=== PATIENT | female | born 1975 | race Caucasian/White ===

== ENCOUNTER 2016-12-22 16:25 | Emergency (ER) | payer BC ==
--- NOTE | 2016-12-22 17:00 | ERPHSYRPT ---
- History of Present Illness Time Seen by Provider: 12/22/16 16:53 Historian: patient Exam Limitations: no limitations Patient Subjective Stated Complaint: pt states she began having right lower abdominal pain for the past 1 week. states pain is worse over the past few days. denies any diarrhea or vomiting. Triage Nursing Assessment: pt pink, warm, dry. abdomen soft, nontender. bowel sounds present in all 4 quads. pt afebrile. Physician History: Patient is a 41-year-old female with her complaining of intermittent abdominal pain on the right side for 2 years. The pain has become more consistent over the past week. No the past few days it is become worse. She vomited at the beginning of the week but hasn't vomited since. She is nauseated. She denies diarrhea. She denies fever or chills. She had surgery for intestinal adhesions 10 years ago. She states the pain now is the same as it was 10 years ago. Her past surgical history is significant for appendectomy , cholecystectomy, total hysterectomy, and adhesions. Her medical history is significant for depression, fibromyalgia, and COPD. Timing/Duration: other (2 years) Activities at Onset: none Quality: sharpness Abdominal Pain Onset Location: RUQ, RLQ Pain Radiation: no radiation Severity of Pain-Max: severe Severity of Pain-Current: severe Modifying Factors: Improves With: analgesics Associated Symptoms: nausea, vomiting, No diarrhea Previous symptoms: same symptoms as today Allergies/Adverse Reactions: No Known Drug Allergies Allergy (Verified 12/22/16 16:41) Home Medications: Hydrocodone/APAP 10/325 mg [Jarrell 10/325 MG Tablet] 1 tab PO Q4-6HPRN PRN 02/24/16 [History] Meloxicam [Mobic] 15 mg PO DAILY 12/22/16 [History] Paroxetine HCl ER 12.5 mg [Paxil 12.5MG CR] 12.5 mg PO DAILY 12/22/16 [ History] Hx Tetanus, Diphtheria Vaccination/Date Given: Yes (up to date) Hx Influenza Vaccination/Date Given: No Hx Pneumococcal Vaccination/Date Given: No Immunizations Up to Date: Yes - Review of Systems Constitutional: No Fever, No Chills Eyes: No Symptoms Ears, Nose, & Throat: No Symptoms Respiratory: No Cough, No Dyspnea Cardiac: No Chest Pain, No Edema, No Syncope Abdominal/Gastrointestinal: Nausea, Vomiting, No Diarrhea Genitourinary Symptoms: No Dysuria Musculoskeletal: No Back Pain, No Neck Pain Skin: No Rash Neurological: No Dizziness, No Focal Weakness, No Sensory Changes Psychological: No Symptoms Endocrine: No Symptoms Hematologic/Lymphatic: No Symptoms Immunological/Allergic: No Symptoms All Other Systems: Reviewed and Negative - Past Medical History Pertinent Past Medical History: Yes Neurological History: No Pertinent History ENT History: No Pertinent History Cardiac History: No Pertinent History Respiratory History: No Pertinent History Endocrine Medical History: No Pertinent History Musculoskeletal History: Arthritis, Fibromyalgia GI Medical History: No Pertinent History History: No Pertinent History Psycho-Social History: No Pertinent History Female Reproductive Disorders: Cervical Cancer - Past Surgical History Past Surgical History: Yes Neuro Surgical History: No Pertinent History Cardiac: No Pertinent History Respiratory: No Pertinent History Gastrointestinal: Appendectomy, Cholecystectomy Genitourinary: No Pertinent History Musculoskeletal: No Pertinent History Female Surgical History: Hysterectomy, Other Other Surgical History: several exploratory lap--removed cysts and endometro. cervical ca--cone. tonsils - Social History Smoking Status: Current every day smoker How long have you smoked: 20 Exposure to second hand smoke: Yes Drug Use: none Patient Lives Alone: No Significant Family History: no pertinent family hx (no early heart disease or blood clots) - Female History Hx Last Menstrual Period: hyster - Nursing Vital Signs Nursing Vital Signs: Initial Vital Signs Temperature 98.3 F 12/22/16 16:35 Pulse Rate 89 12/22/16 16:35 Respiratory Rate 20 12/22/16 16:35 Blood Pressure 143/49 12/22/16 16:35 O2 Sat by Pulse Oximetry 98 12/22/16 16:35 Pain Scale Pain Intensity 5 - Physical Exam General Appearance: moderate distress Eye Exam: PERRL/EOMI, eyes nml inspection Ears, Nose, Throat Exam: normal ENT inspection, pharynx normal, moist mucous membranes Neck Exam: normal inspection, non-tender, supple, full range of motion Respiratory Exam: normal breath sounds, lungs clear, No respiratory distress Cardiovascular Exam: regular rate/rhythm, normal heart sounds Gastrointestinal/Abdomen Exam: normal bowel sounds, tenderness (right side) Pelvic Exam: not done Rectal Exam: not done Back Exam: normal inspection, normal range of motion, No CVA tenderness, No vertebral tenderness Extremity Exam: normal inspection, normal range of motion, pelvis stable Neurologic Exam: alert, oriented x 3, cooperative, normal mood/affect, nml cerebellar function, sensation nml, No motor deficits Skin Exam: normal color, warm, dry SpO2 Interpretation: normal SpO2: 98 Oxygen Delivery: Room Air - CT Exams Abdomen/Pelvis CT Interpretation: Other (Moderate diffuse fecal stasis without obstruction. Mild descending duodenal and ileal bowel wall thickening, possible enteritis. Nonobstructing punctate left renal stone. Remaining abdomen and pelvis negative. Per Dr. Schneider.) Ordered Tests: Active Orders 24 hr Category Date Time Status IV Insertion STAT Care 12/22/16 16:43 Active ABDOMEN AND PELVIS W/0 CONTRAS [CT] Stat Exams 12/22/16 17:04 Taken CBC W DIFF Stat Lab 12/22/16 16:45 Completed CMP Stat Lab 12/22/16 16:45 Completed CULTURE,URINE Stat Lab 12/22/16 16:45 Received LIPASE Stat Lab 12/22/16 16:45 Completed Lactic Acid Stat Lab 12/22/16 17:04 Completed UA W/ MICROSCOPIC Stat Lab 12/22/16 16:45 Completed Urine Triage Profile Stat Lab 12/22/16 16:45 Completed Medication Summary Generic Name Dose Route Start Last Admin Trade Name Freq PRN Reason Stop Dose Admin Sodium Chloride 1,000 mls @ 999 mls/hr 12/22/16 17:04 12/22/16 17:11 Sodium Chloride 0.9% 1000 Ml IV 12/22/16 18:04 999 mls/hr .Q1H1M STA Administration Discontinued Medications Generic Name Dose Route Start Last Admin Trade Name Freq PRN Reason Stop Dose Admin Sodium Chloride Confirm 12/22/16 17:10 Sodium Chloride 0.9% 1000 Ml Administered 12/22/16 17:11 Dose 1,000 mls @ ud .ROUTE .STK-MED ONE Ketorolac Tromethamine 30 mg 12/22/16 17:04 12/22/16 17:11 Toradol 30 Mg Injection IV 12/22/16 17:05 30 mg STAT ONE Administration Ketorolac Tromethamine Confirm 12/22/16 17:10 Toradol 30 Mg Injection Administered 12/22/16 17:11 Dose 30 mg .ROUTE .STK-MED ONE Morphine Sulfate 4 mg 12/22/16 17:04 12/22/16 17:11 Morphine Sulfate 4 Mg Inj IV 12/22/16 17:05 4 mg STAT ONE Administration Morphine Sulfate Confirm 12/22/16 17:10 Morphine Sulfate 4 Mg Inj Administered 12/22/16 17:11 Dose 4 mg .ROUTE .STK-MED ONE Promethazine HCl 25 mg 12/22/16 17:04 12/22/16 17:11 Phenergan 25 Mg Inj IV 12/22/16 17:05 25 mg STAT ONE Administration Promethazine HCl Confirm 12/22/16 17:10 Phenergan 25 Mg Inj Administered 12/22/16 17:11 Dose 25 mg .ROUTE .STK-MED ONE Lab/Rad Data: Laboratory Result Diagrams 12/22/16 16:45 12/22/16 16:45 Laboratory Results 12/22/16 12/22/16 12/22/16 Range/Units 17:04 16:45 16:45 WBC 9.6 (4.0-10.5) K/mm3 RBC 4.70 (4.1-5.4) M/mm3 Hgb 14.5 (12.0-16.0) gm/dl Hct 43.3 (35-47) % MCV 92.1 (78-100) fl MCH 30.9 (26-32) pg MCHC 33.5 (32-36) g/dl RDW 12.9 (11.5-14.0) % Plt Count 332 (150-450) K/mm3 MPV 10.5 H (6-9.5) fl Gran % 67.0 H (36.0-66.0) % Lymphocytes % 25.1 (24.0-44.0) % Monocytes % 6.7 (0.0-12.0) % Eosinophils % 0.9 (0.00-5.0) % Basophils % 0.3 (0.0-0.4) % Basophils # 0.03 (0-0.4) Sodium 142 (136-145) mEq/L Potassium 4.3 (3.5-5.1) mEq/L Chloride 103 (98-107) mEq/L Carbon Dioxide 30.3 (21-32) mEq/L Anion Gap 12.8 (5-15) MEQ/L BUN 17 (9-20) mg/dL Creatinine 0.78 (0.55-1.30) mg/dl Estimated GFR > 60 ML/MIN Glucose 92 (70-110) MG/DL Lactic Acid 1.4 (0.4-2.0) Calcium 9.8 (8.5-10.1) mg/dL Total Bilirubin 0.20 (0.2-1.0) mg/dL AST 23 (15-37) U/L ALT 16 (12-78) U/L Alkaline Phosphatase 124 H (46-116) U/L Serum Total Protein 8.5 H (6.4-8.2) gm/dL Albumin 4.3 (3.4-5.0) g/dL Lipase 455 H (73-393) U/L Ur Collection Type Urine Color (YELLOW) Urine Appearance (CLEAR) Urine pH (5-6) Ur Specific Fisher (1.005-1.025) Urine Protein (Negative) Urine Ketones (NEGATIVE) Urine Blood (0-5) Hai/ul Urine Nitrite (NEGATIVE) Urine Bilirubin (NEGATIVE) Urine Urobilinogen (0-1) mg/dL Ur Leukocyte Esterase (NEGATIVE) Urine Microscopic RBC (0-2) /HPF Urine Microscopic WBC (0-5) /HPF Ur Epithelial Cells (FEW) /HPF Urine Bacteria (NEGATIVE) /HPF Urine Glucose (NEGATIVE) mg/dL Urine Opiates Level (NEGATIVE) Ur Methadone (NEGATIVE) Urine Barbiturates (NEGATIVE) Ur Phencyclidine (PCP) (NEGATIVE) Urine Amphetamine (NEGATIVE) U Benzodiazepine Level (NEGATIVE) Urine Cocaine (NEGATIVE) Urine Marijuana (THC) (NEGATIVE) Specimen Received 12/22/16 12/22/16 Range/Units 16:45 16:45 WBC (4.0-10.5) K/mm3 RBC (4.1-5.4) M/mm3 Hgb (12.0-16.0) gm/dl Hct (35-47) % MCV (78-100) fl MCH (26-32) pg MCHC (32-36) g/dl RDW (11.5-14.0) % Plt Count (150-450) K/mm3 MPV (6-9.5) fl Gran % (36.0-66.0) % Lymphocytes % (24.0-44.0) % Monocytes % (0.0-12.0) % Eosinophils % (0.00-5.0) % Basophils % (0.0-0.4) % Basophils # (0-0.4) Sodium (136-145) mEq/L Potassium (3.5-5.1) mEq/L Chloride (98-107) mEq/L Carbon Dioxide (21-32) mEq/L Anion Gap (5-15) MEQ/L BUN (9-20) mg/dL Creatinine (0.55-1.30) mg/dl Estimated GFR ML/MIN Glucose (70-110) MG/DL Lactic Acid (0.4-2.0) Calcium (8.5-10.1) mg/dL Total Bilirubin (0.2-1.0) mg/dL AST (15-37) U/L ALT (12-78) U/L Alkaline Phosphatase (46-116) U/L Serum Total Protein (6.4-8.2) gm/dL Albumin (3.4-5.0) g/dL Lipase (73-393) U/L Ur Collection Type VOID Urine Color YELLOW (YELLOW) Urine Appearance CLEAR (CLEAR) Urine pH 7.0 (5-6) Ur Specific Fisher 1.015 (1.005-1.025) Urine Protein NEGATIVE (Negative) Urine Ketones NEGATIVE (NEGATIVE) Urine Blood NEGATIVE (0-5) Hai/ul Urine Nitrite NEGATIVE (NEGATIVE) Urine Bilirubin NEGATIVE (NEGATIVE) Urine Urobilinogen NORMAL (0-1) mg/dL Ur Leukocyte Esterase TRACE (NEGATIVE) Urine Microscopic RBC 0-2 (0-2) /HPF Urine Microscopic WBC 5-10 (0-5) /HPF Ur Epithelial Cells MODERATE (FEW) /HPF Urine Bacteria MODERATE (NEGATIVE) /HPF Urine Glucose NEGATIVE (NEGATIVE) mg/dL Urine Opiates Level NEG. (NEGATIVE) Ur Methadone NEG. (NEGATIVE) Urine Barbiturates NEG. (NEGATIVE) Ur Phencyclidine (PCP) NEG. (NEGATIVE) Urine Amphetamine NEG. (NEGATIVE) U Benzodiazepine Level NEG. (NEGATIVE) Urine Cocaine NEG. (NEGATIVE) Urine Marijuana (THC) NEG. (NEGATIVE) Specimen Received 12/22/16 1650 - Progress Progress: improved Counseled pt/family regarding: lab results, diagnosis, need for follow-up, rad results - Departure Time of Disposition: 18:06 Departure Disposition: Home Clinical Impression: Abdominal pain, Serum lipase elevation Condition: Stable Critical Care Time: No Referrals: BOURGASSER,GENE A [NON-STAFF PHY W/O PRIVILEGES] - Additional Instructions: You have abdominal pain. The abdominal CT scan shows possible enteritis of the small intestine and fecal stasis without obstruction. You also have mildly elevated serum lipase. You were given fluids, Toradol 30 mg, and morphine 8 mg by IV in the ER. You were given the opportunity to stay in the hospital for pain control and observation that you declined. Start with a clear liquid diet. Continue to take her home medicines, including the hydrocodone. If the condition worsens, do not hesitate to return for call your family doctor.
[2016-12-22] MEDS ORDERED: MORPHINE SULFATE 4 MG INJ IV ONE ×2 (17:04→18:14)
[2016-12-22] MEDS ORDERED: TORAdol 30 mg Injection IV ONE (17:04)
[2016-12-22] MEDS ORDERED: Sodium Chloride 0.9% 1000 ML 1,000 ML IV STA (17:04)
[2016-12-22] MEDS ORDERED: Phenergan 25 MG INJ IV ONE (17:04)
[2016-12-22] MEDS ORDERED: TORAdol 30 mg Injection ONE (17:10)
[2016-12-22] MEDS ORDERED: Phenergan 25 MG INJ ONE (17:10)
[2016-12-22] MEDS ORDERED: MORPHINE SULFATE 4 MG INJ ONE ×2 (17:10→18:18)
[2016-12-22] MEDS ORDERED: Sodium Chloride 0.9% 1000 ML 1,000 ML ONE (17:10)
[2016-12-22 17:13] LABS: BASOPHIL % 0.3 % (0.0-0.4); Eosinophil % 0.9 % (0.00-5.0); Lymphocytes % 25.1 % (24.0-44.0); Mean Cell Volume 92.1 fl (78-100); Mean Corpuscular Hemoglobin 30.9 pg (26-32); Mean Platelet Volume 10.5 fl (6-9.5); Monocytes % 6.7 % (0.0-12.0); Platelet Count 332 K/mm3 (150-450); Red Cell Distribution Width 12.9 % (11.5-14.0); White Blood Count 9.6 K/mm3 (4.0-10.5)
[2016-12-22 17:26] LABS: ADD URINE CULTURE? YES (NO); Bacteria MODERATE /HPF (NEGATIVE); Bilirubin NEGATIVE (NEGATIVE); Blood NEGATIVE Ery/ul (0-5); COMPLETE URINE MICROSCOPIC? YES; Collection Type VOID; Epithelial Cells MODERATE /HPF (FEW); Glucose NEGATIVE (NEGATIVE); Leukocyte Esterase TRACE (NEGATIVE)
[2016-12-22 17:31] LABS: ALBUMIN 4.3 g/dL (3.4-5.0); ALKALINE PHOSPHATASE 124 U/L (46-116); ANION GAP 12.8 MEQ/L (5-15); BLOOD UREA NITROGEN 17 mg/dL (9-20); CHLORIDE 103 mEq/L (98-107); Carbon Dioxide 30.3 mEq/L (21-32); Glucose 92 MG/DL (70-110); LIPASE 455 U/L (73-393); Potassium 4.3 mEq/L (3.5-5.1); SGOT/AST 23 U/L (15-37); SGPT/ALT 16 U/L (12-78); SODIUM 142 mEq/L (136-145); Total Protein 8.5 gm/dL (6.4-8.2)
[2016-12-22 18:49] VITALS: BP 119/70; PULSE 69; O2SAT 99
--- NOTE | 2016-12-22 22:14 | XRAY ---
Indication: Right lower quadrant pain for one week. Multiple contiguous axial images obtained through the abdomen and pelvis without contrast as ordered. Comparison: None Lung bases are clear. Heart is not enlarged. Noncontrasted stomach and bowel loops appear nonobstructed. Descending duodenum and jejunal bowel loops demonstrates mild wall thickening with some fluid leveling favoring enteritis. No free fluid/air. Moderate diffuse scattered colonic fecal debris. Previous reported appendectomy, cholecystectomy, and hysterectomy. Punctate nonobstructing left renal calculus and 1.5 cm left upper renal cyst. Remaining liver, pancreas, spleen, adrenal glands, kidneys, ureters, and bladder appear unremarkable for noncontrast exam. Mild aortoiliac calcifications without AAA. Osseous structures intact. Impression: 1. Duodenal and jejunal bowel wall thickening with fluid leveling favoring enteritis. 2. Fecal stasis without obstruction. 3. Incidental nonobstructing left renal microcalculus and left renal cyst. CTDI 8.95
== END 2016-12-22 18:48 | disposition home or self-care (01) ==
LOC: ED 16:25
DX: R10.31 Right lower quadrant pain (principal); R10.11 Right upper quadrant pain; R74.8 Abnormal levels of other serum enzymes; R11.2 Nausea with vomiting, unspecified
CPT/HCPCS: 36000; 36415; 74176; 80053; 80307; 81000; 83605; 83690; 85025; 87086; 96360; 96361; 96374; 96375; 99284; J1885; J2270; J2550

== ENCOUNTER 2018-01-11 05:35 | Emergency (ER) | payer BC ==
--- NOTE | 2018-01-11 05:53 | ERPHSYRPT ---
- History of Present Illness Source: patient Exam Limitations: no limitations Timing/Duration: yesterday Activities at Onset: none Severity of Dyspnea-Max: moderate Severity of Dyspnea-Current: moderate Possible Cause: no prior episodes Modifying Factors: Improves With: coughing, deep breath Associated Symptoms: constant, chest pain/discomfort, painful breathing, No insomnia, No loss of appetite, No lightheadedness, No wheezing, No productive cough Hx Tetanus, Diphtheria Vaccination/Date Given: Yes (up to date) Hx Influenza Vaccination/Date Given: No Hx Pneumococcal Vaccination/Date Given: No <GEOFF ELIAS - Last Filed: 01/11/18 05:47> <FRANCISCO MATOS - Last Filed: 01/11/18 07:46> - History of Present Illness Time Seen by Provider: 01/11/18 05:45 Physician History: 42 y/o white female presents with sharp substernal cp when coughing and taking a deep breath. pain does not radiate. started last pm and is worsening. pt has a h/o pleurisy but this is worse. pt is a smoker. pt denies fever and denies productive cough. (GEOFF ELIAS) Allergies/Adverse Reactions: No Known Drug Allergies Allergy (Verified 12/22/16 16:41) Home Medications: Hydrocodone/APAP 10/325 mg [Rumson 10/325 MG Tablet] 1 tab PO Q4-6HPRN PRN 02/24/16 [History] Meloxicam [Mobic] 15 mg PO DAILY 12/22/16 [History] Paroxetine HCl ER 12.5 mg [Paxil 12.5MG CR] 12.5 mg PO DAILY 12/22/16 [ History] - Review of Systems Constitutional: No Symptoms, No Fever Eyes: No Symptoms Ears, Nose, & Throat: No Symptoms, No Ear Pain Respiratory: Cough, Dyspnea (mild), No Stridor, No Wheezing Cardiac: Chest Pain Abdominal/Gastrointestinal: No Symptoms, No Abdominal Pain, No Nausea, No Vomiting, No Diarrhea Genitourinary Symptoms: No Symptoms, No Dysuria, No Frequency, No Hematuria Musculoskeletal: No Symptoms, No Back Pain, No Neck Pain, No Injury Skin: No Symptoms Neurological: No Symptoms, Headache, No Dizziness Psychological: No Symptoms Endocrine: No Symptoms Hematologic/Lymphatic: No Symptoms Immunological/Allergic: No Symptoms All Other Systems: Reviewed and Negative <GEOFF ELIAS - Last Filed: 01/11/18 05:47> - Past Medical History Pertinent Past Medical History: Yes Neurological History: No Pertinent History ENT History: No Pertinent History Cardiac History: No Pertinent History Respiratory History: No Pertinent History Endocrine Medical History: No Pertinent History Musculoskeletal History: Arthritis, Fibromyalgia GI Medical History: No Pertinent History History: No Pertinent History Psycho-Social History: No Pertinent History Female Reproductive Disorders: Cervical Cancer - Past Surgical History Past Surgical History: Yes Neuro Surgical History: No Pertinent History Cardiac: No Pertinent History Respiratory: No Pertinent History Gastrointestinal: Appendectomy, Cholecystectomy Genitourinary: No Pertinent History Musculoskeletal: No Pertinent History Female Surgical History: Hysterectomy, Other Other Surgical History: several exploratory lap--removed cysts and endometro. cervical ca--cone. tonsils - Social History Smoking Status: Current every day smoker How long have you smoked: 20 Exposure to second hand smoke: Yes Drug Use: none Patient Lives Alone: No Significant Family History: no pertinent family hx (no early heart disease or blood clots) <GEOFF ELIAS - Last Filed: 01/11/18 05:47> - Physical Exam General Appearance: mild distress, alert, anxiety Eye Exam: PERRL/EOMI, eyes nml inspection Ears, Nose, Throat Exam: hearing grossly normal Neck Exam: normal inspection, non-tender, supple, full range of motion Respiratory Exam: normal breath sounds, chest tenderness, lungs clear, airway intact, No respiratory distress, No rhonchi, No wheezing, No stridor Cardiovascular/Chest Exam: normal heart sounds, regular rate/rhythm, normal peripheral pulses, No bradycardia, No tachycardia Abdominal/Gastrointestinal Exam: soft, normal bowel sounds, No tenderness, No guarding, No rebound Rectal Exam: not done Extremity Exam: non-tender, normal range of motion, normal inspection Neurologic Exam: alert, oriented x 3, cooperative, telecom billing analyst II-XII nml as tested, normal mood/affect Skin Exam: normal color, warm, dry Lymphatic Exam: No adenopathy SpO2 Interpretation: normal Oxygen Delivery: Room Air <GEOFF ELIAS - Last Filed: 01/11/18 05:47> - Nursing Vital Signs Nursing Vital Signs: Initial Vital Signs Temperature 98.1 F 01/11/18 05:36 Pulse Rate 86 01/11/18 05:36 Respiratory Rate 18 01/11/18 05:36 Blood Pressure 135/85 01/11/18 05:36 O2 Sat by Pulse Oximetry 99 01/11/18 05:36 Pain Scale Pain Intensity 8 - Course Nursing assessment & vital signs reviewed: Yes EKG Interpreted by Me: RATE (79), Sinus Rhythm, NORMAL AXIS, NORMAL INTERVALS, NORMAL QRS, Right Bundle Branch Block, Other (no change from ekg dated 02/24/16) <GEOFF ELIAS - Last Filed: 01/11/18 05:47> - Radiology Exams Chest X-ray Interpretation: Interpreted by me, Negative (comp to 2V chest 02/24/16.) <FRANCISCO MATOS - Last Filed: 01/11/18 07:46> Ordered Tests: Active Orders 24 hr Category Date Time Status CHEST 1 VIEW (PORTABLE) Stat Exams 01/11/18 05:56 Taken CBC W DIFF Stat Lab 01/11/18 06:10 Completed CMP Stat Lab 01/11/18 06:10 Completed D-DIMER QUANTITATION Stat Lab 01/11/18 06:10 Completed TROPONIN Q3H Lab 01/11/18 06:10 Completed TROPONIN Q3H Lab 01/11/18 09:00 Ordered TROPONIN Q3H Lab 01/11/18 12:00 Ordered TROPONIN Q3H Lab 01/11/18 15:00 Ordered TROPONIN Q3H Lab 01/11/18 18:00 Ordered Medication Summary Discontinued Medications Generic Name Dose Route Start Last Admin Trade Name Tristianq PRN Reason Stop Dose Admin Aspirin 324 mg 01/11/18 05:56 01/11/18 06:26 Baby Aspirin 81 Mg Chew PO 01/11/18 05:57 324 mg STAT ONE Administration Aspirin Confirm 01/11/18 06:15 Baby Aspirin 81 Mg Chew Administered 01/11/18 06:16 Dose 324 mg .ROUTE .STK-MED ONE Morphine Sulfate 2 mg 01/11/18 05:56 01/11/18 06:26 Morphine Sulfate 2 Mg Inj IV 01/11/18 05:57 2 mg STAT ONE Administration Morphine Sulfate Confirm 01/11/18 06:15 Morphine Sulfate 2 Mg Inj Administered 01/11/18 06:16 Dose 2 mg .ROUTE .STK-MED ONE Ondansetron HCl 4 mg 01/11/18 05:56 01/11/18 06:26 Zofran 4 Mg/2 Ml Vial IV 01/11/18 05:57 4 mg STAT ONE Administration Ondansetron HCl Confirm 01/11/18 06:15 Zofran 4 Mg/2 Ml Vial Administered 01/11/18 06:16 Dose 4 mg .ROUTE .[facility] ONE Lab/Rad Data: Laboratory Result Diagrams 01/11/18 06:10 01/11/18 06:10 Laboratory Results 01/11/18 01/11/18 01/11/18 Range/Units 06:10 06:10 06:10 WBC (4.0-10.5) K/mm3 RBC (4.1-5.4) M/mm3 Hgb (12.0-16.0) gm/dl Hct (35-47) % MCV (78-100) fl MCH (26-32) pg MCHC (32-36) g/dl RDW (11.5-14.0) % Plt Count (150-450) K/mm3 MPV (6-9.5) fl Gran % (36.0-66.0) % Eos # (Auto) (0-0.5) Absolute Lymphs (auto) (1.0-4.6) Absolute Monos (auto) (0.0-1.3) Lymphocytes % (24.0-44.0) % Monocytes % (0.0-12.0) % Eosinophils % (0.00-5.0) % Basophils % (0.0-0.4) % Absolute Granulocytes (1.4-6.9) Basophils # (0-0.4) D-Dimer < 215 L (215-500) ng/mL Sodium 144 (137-145) mmol/L Potassium 3.9 (3.5-5.1) mmol/L Chloride 103 (98-107) mmol/L Carbon Dioxide 29 (22-30) mmol/L Anion Gap 16.0 H (5-15) MEQ/L BUN 15 (7-17) mg/dL Creatinine 0.75 (0.52-1.04) mg/dL Estimated GFR > 60.0 ML/MIN Glucose 97 (74-106) mg/dL Calcium 10.0 (8.4-10.2) mg/dL Total Bilirubin 0.40 (0.2-1.3) mg/dL AST 17 (14-36) U/L ALT 15 (0-35) U/L Alkaline Phosphatase 107 (38-126) U/L Troponin I < 0.012 (0.000-0.034) ng/mL Serum Total Protein 8.0 (6.3-8.2) g/dL Albumin 5.0 (3.5-5.0) g/dL 01/11/18 Range/Units 06:10 WBC 7.5 (4.0-10.5) K/mm3 RBC 4.42 (4.1-5.4) M/mm3 Hgb 13.9 (12.0-16.0) gm/dl Hct 41.2 (35-47) % MCV 93.2 (78-100) fl MCH 31.4 (26-32) pg MCHC 33.7 (32-36) g/dl RDW 13.1 (11.5-14.0) % Plt Count 425 (150-450) K/mm3 MPV 9.8 H (6-9.5) fl Gran % 56.4 (36.0-66.0) % Eos # (Auto) 0.14 (0-0.5) Absolute Lymphs (auto) 2.53 (1.0-4.6) Absolute Monos (auto) 0.56 (0.0-1.3) Lymphocytes % 33.9 (24.0-44.0) % Monocytes % 7.5 (0.0-12.0) % Eosinophils % 1.9 (0.00-5.0) % Basophils % 0.3 (0.0-0.4) % Absolute Granulocytes 4.22 (1.4-6.9) Basophils # 0.02 (0-0.4) D-Dimer (215-500) ng/mL Sodium (137-145) mmol/L Potassium (3.5-5.1) mmol/L Chloride (98-107) mmol/L Carbon Dioxide (22-30) mmol/L Anion Gap (5-15) MEQ/L BUN (7-17) mg/dL Creatinine (0.52-1.04) mg/dL Estimated GFR ML/MIN Glucose (74-106) mg/dL Calcium (8.4-10.2) mg/dL Total Bilirubin (0.2-1.3) mg/dL AST (14-36) U/L ALT (0-35) U/L Alkaline Phosphatase (38-126) U/L Troponin I (0.000-0.034) ng/mL Serum Total Protein (6.3-8.2) g/dL Albumin (3.5-5.0) g/dL <GEOFF ELIAS - Last Filed: 01/11/18 05:47> - Progress Air Movement: good Blood Culture(s) Obtained: No Antibiotics given: No Counseled pt/family regarding: rad results <FRANCISCO MATOS - Last Filed: 01/11/18 07:46> - Progress Progress Note: 01/11/18 05:54 i have signed out to dr. matos (GEOFF ELIAS) 01/11/18 06:20 Pt care discussed and care accepted from Dr Elias at 07:00. (FRANCISCO MATOS) <GEOFF ELIAS - Last Filed: 01/11/18 05:47> - Departure Time of Disposition: 07:37 Departure Disposition: Home Critical Care Time: No <FRANCISCO MATOS - Last Filed: 01/11/18 07:46> - Departure Clinical Impression: Pleurisy, Bronchitis Condition: Stable Referrals: DOCTOR,NO FAMILY [Primary Care Provider] - Additional Instructions: You have pleuritic chest pain and early bronchitis. You were given aspirin 324 mg orally and morphine 2 mg, Zofran 4 mg, and Toradol 30 mg by IV in the ER. Take naproxen 500 mg 2 times a day as needed for pain. Take Augmentin 875 to times a day for 10 days. Follow-up with your primary medical doctor as needed. Prescriptions: Amoxicillin/Potassium Clav [Augmentin 875-125 Tablet] 875 mg PO BID #20 tablet Naproxen 500 mg PO BID PRN #30 tablet.
[2018-01-11] MEDS ORDERED: MORPHINE SULFATE 2 MG INJ IV ONE (05:56)
[2018-01-11] MEDS ORDERED: BABY ASPIRIN 81 MG CHEW PO ONE (05:56)
[2018-01-11] MEDS ORDERED: Zofran 4 MG/2 ML VIAL IV ONE (05:56)
[2018-01-11] MEDS ORDERED: BABY ASPIRIN 81 MG CHEW ONE (06:15)
[2018-01-11] MEDS ORDERED: MORPHINE SULFATE 2 MG INJ ONE (06:15)
[2018-01-11] MEDS ORDERED: Zofran 4 MG/2 ML VIAL ONE (06:15)
[2018-01-11 06:20] LABS: BASOPHIL % 0.3 % (0.0-0.4); Basophil (Absolute #) 0.02 (0-0.4); Eosinophil % 1.9 % (0.00-5.0); Eosinophil (Absolute #) 0.14 (0-0.5); Granulocyte Absolute (ANC) 4.22 (1.4-6.9); Granulocytes % 56.4 % (36.0-66.0); Hematocrit 41.2 % (35-47); Hemoglobin 13.9 gm/dl (12.0-16.0); Lymphocyte (Absolute #) 2.53 (1.0-4.6); Lymphocytes % 33.9 % (24.0-44.0); Mean Cell Volume 93.2 fl (78-100); Mean Corpuscular Hemoglobin 31.4 pg (26-32); Mean Corpuscular Hgb Concent. 33.7 g/dl (32-36); Mean Platelet Volume 9.8 fl (6-9.5); Monocyte (Absolute #) 0.56 (0.0-1.3); Monocytes % 7.5 % (0.0-12.0); Platelet Count 425 K/mm3 (150-450); Red Blood Count 4.42 M/mm3 (4.1-5.4); Red Cell Distribution Width 13.1 % (11.5-14.0); White Blood Count 7.5 K/mm3 (4.0-10.5)
[2018-01-11 06:37] LABS: ALKALINE PHOSPHATASE 107 U/L (38-126); BLOOD UREA NITROGEN 15 mg/dL (7-17); CHLORIDE 103 mmol/L (98-107); Carbon Dioxide 29 mmol/L (22-30); Creatinine 1 0.75 mg/dL (0.52-1.04); Glucose 97 mg/dL (74-106); Potassium 3.9 mmol/L (3.5-5.1); SGOT/AST 17 U/L (14-36); SGPT/ALT 15 U/L (0-35); SODIUM 144 mmol/L (137-145)
[2018-01-11] MEDS ORDERED: TORAdol 30 mg Injection IV ONE (07:34)
[2018-01-11] MEDS ORDERED: TORAdol 30 mg Injection ONE (07:39)
--- NOTE | 2018-01-11 07:41 | XRAY ---
Indication: Chest pain. Comparison: February 24, 2016. Portable chest again demonstrates normal heart, lungs, and bony thorax with a few incidental calcified granulomas.
[2018-01-11 07:53] VITALS: PULSE 78
[2018-01-11 08:06] VITALS: BP 121/75; O2SAT 97
== END 2018-01-11 08:06 | disposition home or self-care (01) ==
LOC: ED 05:35
DX: R09.1 Pleurisy (principal); J40 Bronchitis, not specified as acute or chronic; Z79.899 Other long term (current) drug therapy
CPT/HCPCS: 36415; 71045; 80053; 84484; 85025; 85379; 96374; 96375; 99284; J1885; J2270; J2405; A9270-GY

== ENCOUNTER 2018-02-06 10:58 | Day surgery (SDC) | payer BC ==
--- NOTE | 2018-02-06 10:33 | HP ---
DATE OF SURGERY: 02/06/2018 ANTICIPATED PROCEDURE: Laparoscopy possible laparotomy. HISTORY OF PRESENT ILLNESS: The patient has had persistent abdominal pain. She had upper GI with small bowel follow through predominantly right sided. She has done extensive urological work up. Her pain is right lower quadrant. Her CT scan with no CT evidence of disease. She desires to have laparoscopic examination and possible laparotomy if necessary if her right lower quadrant is persistent. PAST MEDICAL HISTORY: ALLERGIES: NONE. MEDICATIONS: Multiple. PAST SURGICAL HISTORY: Hysterectomy. Hernia surgery. Bladder surgery. SOCIAL HISTORY: One pack per day. ETOH negative. FAMILY HISTORY: Negative. REVIEW OF SYSTEMS: Fibromyalgia. PHYSICAL EXAMINATION: VITAL SIGNS: Normal. CHEST: Clear. COR: Regular. IMPRESSION: Right lower quadrant pain laparoscopy and possible laparotomy.
[~2018-02-06 10:58] MED LIST: Lactated Ringers 1,000 ML IV ONE; Lactated Ringers 1,000 ML IV SCH; MEFOXIN 2 GM PREMIX** 2 GM/50 ML ML IV ONE; Sensorcaine 0.25% 10 ML ONE
[2018-02-06] MEDS ORDERED: BRIDION 200MG/2ML IV ONE (10:59)
[2018-02-06] MEDS ORDERED: DIPRIVAN 200 MG/20 ML IV ONE (10:59)
[2018-02-06] MEDS ORDERED: Versed 2 MG/2 ML Injection IV ONE (10:59)
[2018-02-06] MEDS ORDERED: Zemuron 100 MG/10 ML IV ONE (10:59)
[2018-02-06] MEDS ORDERED: SUBLIMAZE 250 MCG/5 ML IV ONE (10:59)
[2018-02-06] MEDS ORDERED: Zofran 4 MG/2 ML VIAL ONE (14:26)
[2018-02-06] MEDS ORDERED: DILAUDID 2 MG INJECTION ONE (14:32)
[2018-02-06] MEDS ORDERED: TORAdol 30 mg Injection ONE (14:32)
[2018-02-06 15:18] LABS: Appearance CLEAR (CLEAR); Bilirubin NEGATIVE (NEGATIVE); Blood NEGATIVE Ery/ul (0-5); Glucose 50 mg/dL (NEGATIVE); Ketones NEGATIVE (NEGATIVE); Leukocyte Esterase TRACE (NEGATIVE); Nitrite NEGATIVE (NEGATIVE); Protein,Urine Dip NEGATIVE (Negative); Specific Gravity 1.012 (1.005-1.025); Urobilinogen NEGATIVE mg/dL (0-1)
[2018-02-06 15:55] VITALS: O2SAT 99
[2018-02-06 16:01] VITALS: BP 113/58; PULSE 61
--- NOTE | 2018-02-07 11:20 | OP ---
SURGERY DATE/TIME: 02/06/2018 1306 PREOPERATIVE DIAGNOSIS: Persistent right lower quadrant pain. POSTOPERATIVE DIAGNOSIS: Persistent right lower quadrant pain. PROCEDURE: Diagnostic laparoscopy. SURGEON: Deangelo Garza M.D. ANESTHESIA: General. INDICATION: Patient had previous section, previous hysterectomy and previous appendectomy. DESCRIPTION OF PROCEDURE: She is taken to surgery. General anesthetic. Routine prep and drape. Veress needle inserted right upper quadrant. Camera in the left upper quadrant. Two - 5 ports, one port was additionally placed in the midline incision below the umbilicus subsequently. The bowel loops were totally matted in the right lower quadrant and over a period of about 45 minutes complete enterolysis of this area was performed. At this time there is no suggestion of any residual possibility of entrapment of the bowel. The colon was free going in the pelvis. Gynecological structures were all surgically absent. The pelvic brim was totally clear. The small bowel was laid back in organized fashion. There was scant omentum. The puncture sites were all fine. No closure was needed. Skin closed with 4-0 Vicryl and Steri-Strips. The patient tolerated the procedure satisfactorily.
== END 2018-02-06 15:40 | disposition home or self-care (01) ==
LOC: SDC 10:58
PROVIDERS: ATTEND Surgery
DX: R10.31 Right lower quadrant pain (principal); M79.7 Fibromyalgia
CPT/HCPCS: 81001; 87086; 94250; J0694; J1170; J1885; J2250; J2405; J2704; J3010